=== PATIENT | female | born 1965 | race Caucasian/White ===

== ENCOUNTER 2019-04-27 06:00 | Outpatient (RCR) | payer OTHER, SELFPAY | END 2019-05-27 00:01 | LOC: SPT 06:00 | PROVIDERS: Family Provider Family Medicine; Visit Provider Specialist | DX: M25.511 Pain in right shoulder (principal); M25.611 Stiffness of right shoulder, not elsewhere classified | CPT/HCPCS: 97110 ×2 ==

== ENCOUNTER 2019-05-28 06:00 | Outpatient (RCR) | payer OTHER, SELFPAY | END 2019-06-27 23:59 | disposition home or self-care (01) | LOC: SPT 06:00 | PROVIDERS: Family Provider Family Medicine; PCP Family Medicine; Visit Provider Specialist | DX: M25.611 Stiffness of right shoulder, not elsewhere classified (principal); M25.511 Pain in right shoulder ==

== ENCOUNTER 2019-11-12 11:16 | Outpatient (CLI) | payer OTHER, SELFPAY | END 2019-11-12 11:17 | disposition home or self-care (01) | LOC: SPT 11:17 | PROVIDERS: Family Provider Family Medicine; PCP Family Medicine; Visit Provider Podiatrist Foot & Ankle Surgery | DX: Q66.72 Congenital pes cavus, left foot (principal) | CPT/HCPCS: 97760; L4397 ==

== ENCOUNTER 2020-01-26 08:11 | Emergency (ER) | payer OTHER, SELFPAY ==
[2020-01-26 08:14] VITALS: BP 156/90; PULSE 88; RESP 18; TEMP 36.3; O2SAT 98; BMI 31.8
[2020-01-26] MEDS: fluorescein 1 mg Strip EYE-LEFT (08:31)
[2020-01-26] MEDS: tetracaine 0.5% Op Soln 4 mL Btl 1 DROP EYE-LEFT (08:32)
[2020-01-26] MEDS: eye irrigation 30 mL Btl EYE-LEFT (08:34)
[2020-01-26 09:02] VITALS: BP 133/82; PULSE 65; RESP 18; O2SAT 98
--- NOTE | 2020-01-26 09:03 | W.ED.EYEPROB ---
HPI - Eye Problem General: Chief complaint: Eye Problems Stated complaint: L EYE INJURY/POKED WITH A STICK Time Seen by Provider: 01/26/20 08:12 History of Present Illness: HPI Narrative: Patient scratched her left eyeball with a stick last night by accident is able to see okay light hurts her eye chief complaint: eye injury Onset (ago): hour(s) Onset description: sudden Duration: constant Location: left eye Eye Symptoms: burning, redness and pain Place: home Mechanism: direct trauma Severity: mild Associated symptoms: Reports no associated symptoms; Denies fever(s), headache(s), nausea or vomiting Review of Systems Const: Denies: fever(s), chills or body aches Eyes: Reports: eye discomfort; Denies: change in vision or blurry vision ENMT: Denies: throat pain or nasal congestion Card: Denies: chest pain or dyspnea on exertion Resp: Denies: dyspnea, productive cough or non-productive cough GI: Denies: abdominal pain, nausea or vomiting Musc: Denies: extremity pain Skin/Breast: Denies: rash Neuro: Denies: headache(s) Psych: Denies: anxiety or depression Sebas/Lymph: Denies: easy bruising Physical Exam Eye: COMMON NORMALS: Equal, round and reactive pupils present VISUAL ACUITY: Yes acuity normal CORNEA: Yes fluorescein used (Patient has abrasion to the center of her cornea and then slightly above it at 12 o'clock position off the cornea did take up the floor seen) PUPIL: Yes Equal, round and reactive pupils present Psych: COMMON NORMALS: mental status grossly normal Course Vital Signs: Vital signs: Vital Signs Temperature 97.3 F L 01/26/20 08:14 Pulse Rate 65 01/26/20 09:02 Respiratory Rate 18 01/26/20 09:02 Blood Pressure 133/82 01/26/20 09:02 Pulse Oximetry 98 01/26/20 09:02 MDM - Eye Problem MDM Narrative: Medical decision making narrative: Patient's I took fluorescein stain abrasion to cornea and then also slightly about 12 o'clock position irrigated the eye at best is possible is very difficult to keep this person's eye open while doing the irrigation so some of forcing still was left patient was told her then told to follow-up Dr. Alba tomorrow no foreign body seen Discharge Plan Discharge Patient Disposition: Home Clinical Impression: Corneal abrasion Qualifiers: Encounter type: initial encounter Laterality: left Qualified Code(s): S05.02XA - Injury of conjunctiva and corneal abrasion without foreign body, left eye, initial encounter Condition: Stable Prescriptions: New gentamicin 0.3 % drops 1 drop ophthalmic (eye) Q3H 3 Days Qty: 5 RF: 0 No Action (DME) Night Splint See Rx Instructions .Route .MEDSUPPLY Qty: 1 RF: 0 Discharge Orders: Discharge Order (Routine); Ordered 01/26/20 Ordered By: Ethan Landers Referrals: Marleny Juarez MD [Primary Care Provider] - Discharge Diet: Usual diet Discharge Activity: Increase activity as tolerated Patient Instructions: Corneal Abrasion (ED) Activity Restrictions/Additional Instructions: Follow-up with medical provider as directed. Take medications as prescribed. Return to the ER or your medical provider if condition worsens. Please read and understand discharge instructions. If any questions ask please. Follow-up with Dr. Alba in the morning if no significant improvement can take Tylenol or ibuprofen for pain. Coding Level of Care Code ED Research Laboratory Manager for Melani Coe Exam Expanded Problem Focused
--- NOTE | 2020-01-26 12:32 | PC.NURSE ---
Read and agree with assessment
== END 2020-01-26 09:13 | disposition home or self-care (01) ==
PROVIDERS: Emergency Provider Nurse Practitioner Family; Family Provider Family Medicine; PCP Family Medicine
DX: S05.02XA Injury of conjunctiva and corneal abrasion without foreign body, left eye, initial encounter (principal); X58.XXXA Exposure to other specified factors, initial encounter
CPT/HCPCS: 12345; 99281; 99283

== ENCOUNTER 2020-04-02 05:40 | Day surgery (SDC) | payer OTHER, SELFPAY ==
[2020-04-01 08:03] VITALS: BMI 30.6
[2020-04-02 05:59] VITALS: BP 124/86; PULSE 101; RESP 18; TEMP 36.8; O2SAT 99
[2020-04-02] MEDS: sodium chloride 0.9% 1,000 ML 30 ML IV (06:13)
--- NOTE | 2020-04-02 06:40 | P.ANESASSM_ITS ---
Pre-Anesthetic Assessment Pre-Anesthetic Assessment: Height/Weight: Height 1.6 m Weight 78.471 kg Temp Pulse Resp BP Pulse Ox 98.2 F 101 H 18 124/86 99 04/02/20 05:59 04/02/20 05:59 04/02/20 05:59 04/02/20 05:59 04/02/20 05:59 Proposed Procedure: Operation Date: 04/02/20 07:00 Proposed Procedures p Colonoscopy(Not Applicable) - Zach Crenshaw MD Familial anesthetic complications: None Was Beta Rajinder taken within 24 hours: N/A Last intake: Intake Last Liquid Date 04/01/20 Last Liquid Time 23:59 Last Solid Date 03/31/20 Last Solid Time 20:00 Social: Social History: No alcohol and No tobacco Exam: Pre-Anes Outpt Exam: alert, oriented x 3, clear to auscultation bilaterally and regular rate & rhythm Airway: Cervical ROM: WNL MP: 1 Dentition: False CV/HEM: Comments: as a 5 year old had a heart defect ( a whole) repaired. She says it was a valve. [facility] has no futher details. Echo as an adult, showed no abnormalities, EF 55%, grade I diastolic dsyfunction Metabolic: Metabolic: Thyroid Anesthetic Plan: ASA status: 2 Anesthesia: MAC Risk of > 500 ml blood loss (7ml/kg in children): No Meds/Allergies Current Medications: Current Medications Generic Name Dose Route Start Last Admin Trade Name Freq PRN Reason Stop Dose Admin Sodium Chloride 1,000 mls @ 30 ml s/hr 04/02/20 06:00 04/02/20 06:13 Sodium Chloride 0.9% IV 04/03/20 05:59 30 mls/hr .Q24H UMU Administration Data Anesthesia Cardiac Studies: No Data to Display
[2020-04-02 07:29] VITALS: BP 110/75; PULSE 84; RESP 18; TEMP 36.1; O2SAT 97
--- NOTE | 2020-04-02 07:33 | PM.HP ---
Providers/Chief Complaint Primary Care Provider: Marleny Juarez MD Chief Complaint: SCREENING History of Present Illness Fay Palacios is a 54 year old female who presents for a screening colonoscopy due to family history of colon cancer. Her most recent colonoscopy was in 2013.. She was seen in my office on 10 February. At that time he was discussed the risks and benefits of a screening colonoscopy. We discussed the risks of bleeding, perforation and sedation. She had no further questions and wishes to proceed. Review of Systems General: Reports: 10 or more systems reviewed and unremarkable except in HPI and below Const: Denies: fever(s) Card: Denies: chest pain or irregular heart rhythm Resp: Denies: dyspnea Medications/Allergies Home Medications Medication Instructions Recorded Confirmed Last Taken Type Night Splint #1 ea 11/12/19 11/12/19 Unknown Rx levothyroxine [Euthyrox] 100 mcg PO DAILY 04/01/20 04/02/20 04/01/20 History metronidazole 1 applic TOPICAL PRN PRN 04/02/20 04/02/20 Unknown History minocycline 1 mg PO PRN 04/02/20 04/02/20 Unknown History oxymetazoline [Rhofade] 1 applic TOPICAL PRN PRN 04/02/20 04/02/20 Unknown History Allergies Allergy/AdvReac Type Severity Reaction Status Date / Time terbinafine [From Lamisil] Allergy Intermediate ALGY-Hives Verified 01/26/20 08:16 Vitals/I&O/Wt Last Vital Signs Temp 97 F L 04/02/20 07:29 Pulse 84 04/02/20 07:29 Resp 18 04/02/20 07:29 BP 110/75 04/02/20 07:29 Pulse Ox 97 04/02/20 07:29 Weight last 48 hrs Weight 173 lb Physical Exam Const: COMMON NORMALS: no acute distress and patient oriented x3 GENERAL APPEARANCE: cooperative, comfortable and well developed HENMT: COMMON NORMALS: normocephalic and moist oral mucous membranes HEAD & SCALP: normocephalic Chest: COMMONS NORMALS: normal inspection of the chest Resp: COMMON NORMALS: normal respiratory effort and clear to auscultation bilaterally AUSCULTATION: clear to auscultation bilaterally Cardio: COMMON NORMALS: regular rate, regular rhythm, No gallops present (Cardio), No murmurs present (Cardio) and No rub (Cardio) RATE: regular rate RHYTHM: regular rhythm Extremity: COMMON NORMALS: normal to inspection Neuro: COMMON NORMALS: patient oriented x3 and no focal motor deficits Skin: COMMON NORMALS: no rashes or lesions noted GENERAL SKIN EXAM: no rashes or lesions noted A&P Assessment and plan (1) Family history of colon cancer in mother: Proceed with screening colonoscopy. We once again reiterated the risks of the procedure this morning. Status: Acute Attestations Medical Necessity Statement*: Outpatient procedure. 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
[2020-04-02 07:44] VITALS: BP 95/74; PULSE 85; RESP 18; O2SAT 100
--- NOTE | 2020-04-02 08:20 | ANE.PACU2 ---
Inpatient post-anesthesia follow up: Airway intact: Yes Vital signs: Temperature 97 F Pulse Rate 85 Respiratory Rate 18 Blood Pressure 95/74 Pulse Oximetry 100 Oxygen Delivery Me thod Room Air Oxygen Flow Rate Fraction of Inspir ed Oxygen Hydration adequate: Yes Nausea and vomiting: No Pain level: 1 Mental status: Baseline
== END 2020-04-02 08:24 | disposition home or self-care (01) ==
PROVIDERS: PCP Family Medicine; Visit Provider Family Medicine
PROC: 0DJD8ZZ Inspection of Lower Intestinal Tract, Via Natural or Artificial Opening Endoscopic (ICD-10-PCS; CPT 45378; principal; 2020-04-02 07:00)
DX: Z12.11 Encounter for screening for malignant neoplasm of colon (principal); Z80.0 Family history of malignant neoplasm of digestive organs
CPT/HCPCS: 12345; 45378; J2704; J7030

== ENCOUNTER 2020-05-04 13:59 | Outpatient (CLI) | payer OTHER, SELFPAY ==
--- NOTE | 2020-05-04 14:05 | MM_ITS ---
WS: [id number] SCREENING DIGITAL MAMMOGRAM WITH CAD HISTORY: SCREENING COMPARISON: 04/14/2019 and 07/19/2017 Bilateral CC and MLO views submitted. Computer aided detection analyzed. Breast composition: There are scattered areas of fibroglandular density. No suspicious masses, microc alcifications or architectural distortion. MM/[id number] IMPRESSION: BI-RADS: 1-Negative FOLLOW UP: 1 Year Follow-up
== END 2020-05-04 14:00 | disposition home or self-care (01) ==
LOC: RADSHAW 14:04
PROVIDERS: PCP Family Medicine; Visit Provider Family Medicine
DX: Z12.31 Encounter for screening mammogram for malignant neoplasm of breast (principal)
CPT/HCPCS: 77067

== ENCOUNTER → 2020-12-07 10:19 | Outpatient (BNVA) | payer OTHER, SELFPAY | PROVIDERS: PCP Family Medicine; Visit Provider Internal Medicine Cardiovascular Disease | DX: E78.5 Hyperlipidemia, unspecified (principal) | CPT/HCPCS: 80061 ==

== ENCOUNTER 2021-01-12 06:50 | Outpatient (CLI) | payer OTHER, SELFPAY ==
--- NOTE | 2021-01-12 07:31 | ECG_ITS ---
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 Baseline heart rate was 72 beats per minute. Baseline blood pressure was 132/86 millimeters of mercury. Target heart rate was 167 beats per minute. Maximum heart rate achieved was 154, which was 92 % of the target heart rate. Maximum blood pressure was 161/93 millimeters of mercury. Total exercise time was 6 minutes. Maximum METs achieved was 7.0, maximum VO2 was 24.5. The reason for ending the test was maximum effort achieved. The patient complained of shortness of breath during the stress test, which then resolved at the end of the test. ELECTROCARDIOGRAM: BASELINE: Showed sinus rhythm, normal axis, no significant ST-T changes at the baseline noted. EXERCISE: At the peak exercise level, no significant ST-T changes suggestive of ischemia noted. RECOVERY: During the recovery period, heart rate dropped appropriately. No significant ST-T changes in the recovery suggestive of ischemia noted. CONCLUSION: 1. Exercise capacity fair. 2. Heart rate response was appropriate. 3. Blood pressure response was appropriate. 4. Symptoms not suggestive of ischemia. 5. Electrocardiogram portion of the stress test was not suggestive of ischemia. 6. Nuclear scan will be documented separately. Electronically Signed On 01-19-2021 21:28:23 CDT by DESTINY GARCIA [id number]
[2021-01-12 07:32] VITALS: BMI 31.3
--- NOTE | 2021-01-12 07:32 | NMCV_ITS ---
NM sandip perf SPECT r/s* [id number] Fay Palacios Age: 55 Gender: F : 1965 Exam Date: 01/12/2021 08:18 Ordering Phys: Kelli Garcia MD ([email or web address]) Technologist: FRANCISCO Roe Exam Location: [facility] Indications: SHORTNESS OF BREATH STRESS TEST [facility] IMAGE PROTOCOL Rest/Stress 1 Exercise Day Radiopharmaceutical Dose (mCi) Administration Site Administered by Rest: Tc-99m 10.8 IV FRANCISCO [place] Sestamibi Stress:Tc-99m 32.6 IV FRANCISCO [place] Sestamibi Rest: 12-Jan-2021 60 Discovery 630 Stress: 12-Jan-2021 15 Discovery 630 Radiopharmaceutical was injected at 89 % maximum heart rate. images obtained in supine and prone position. SPECT RESULTS Technical Quality: Excellent Raw Data Analysis: Normal Image Corrections: No attenuation or motion correction applied Summed Stress Score: 0 Summed Rest Score: 0 Summed Difference Score: 0 PERFUSION FINDINGS SPECT images demonstrate homogeneous tracer distribution throughout the myocardium. FUNCTIONAL RESULTS (calculated via Gated SPECT) Stress Image LV EF (%): 66 Stress EDV (mL):88 TID: 0.92 Stress ESV (mL):30 Rest Image LV EF (%): 66 FUNCTIONAL FINDINGS: There is normal left ventricular systolic function. IMPRESSIONS Myocardial perfusion imaging is normal. EKG segment will be documented separately. Kelli Garcia MD (Electronically Signed) Final Date: 12 January 2021 21:15 S
[2021-01-12 09:05] VITALS: BP 135/84; PULSE 96
== END 2021-01-12 06:51 | disposition home or self-care (01) ==
LOC: CDL 06:54
PROVIDERS: PCP Family Medicine; Visit Provider Internal Medicine Cardiovascular Disease
DX: R07.9 Chest pain, unspecified (principal); R06.02 Shortness of breath
CPT/HCPCS: 78452; 93017; A9500

== ENCOUNTER → 2021-03-15 09:07 | Outpatient (BNVA) | payer OTHER, SELFPAY | PROVIDERS: PCP Family Medicine; Referring Provider Family Medicine; Visit Provider Internal Medicine | DX: E03.9 Hypothyroidism, unspecified (principal); L68.0 Hirsutism; Z87.891 Personal history of nicotine dependence | CPT/HCPCS: 99204 ==

== ENCOUNTER 2021-03-15 10:12 | Outpatient (CLI) | payer OTHER, SELFPAY ==
[2021-03-15 11:32] LABS: Free T4 Free Thyroxine 1.56 ng/dL (0.82-1.77); Thyroid Stimulating Hormone 0.05 uIU/mL (0.27-4.20)
[2021-03-16 14:52] LABS: Dehydroepiandrosterone Sulfate 211 mcg/dL (8-188); Thyroid Peroxidase Antobodies 6 IU/mL (<9)
== END 2021-03-15 10:13 | disposition home or self-care (01) ==
PROVIDERS: PCP Family Medicine; Visit Provider Internal Medicine
DX: E03.9 Hypothyroidism, unspecified (principal); L68.0 Hirsutism
CPT/HCPCS: 36415; 82627; 84403; 84439; 84443; 86376

== ENCOUNTER 2021-04-06 06:39 | Outpatient (CLI) | payer OTHER, SELFPAY ==
--- NOTE | 2021-04-06 07:15 | USCV_ITS ---
Fay Palacios Age: 55 Gender: F : 1965 Exam Date: 04/06/2021 07:15 Ordering Phys: Kelli Garcia MD ([email or web address]) Technologist: Dimitry Potts Exam Location: [facility] – [place] Indication: SOB BP: 130 / 74 HR: 76 Rhythm: Sinus Technical Quality: Adequate MEASUREMENTS (Male / Female) Normal Values 2D ECHO LV Diastolic Diameter PLAX 4.3 cm 4.2 - 5.9 / 3.9 - 5.3 cm LV Systolic Diameter PLAX 3.2 cm IVS Diastolic Thickness 0.9 cm 0.6 - 1.0 / 0.6 - 0.9 cm IVS Systolic Thickness 1.1 cm LVPW Diastolic Thickness 1.0 cm 0.6 - 1.0 / 0.6 - 0.9 cm LVPW Systolic Thickness 1.1 cm LVOT Diameter 2.0 cm LV Ejection Fraction 2D Teich 50.6 % LV Ejection Fraction MOD 2C 54.3 % LV Ejection Fraction 2C AL 56.9 % LA Diameter 3.5 cm LA Width 4.2 cm LA Height 4.4 cm RA Width 3.5 cm RA Height 4.9 cm DOPPLER AV Peak Velocity 116.0 cm/s LVOT Peak Velocity 69.0 cm/s AV Area Cont Eq vti 2.0 cm squared AV Area Cont Eq pk 1.9 cm squared MV Area PHT 5.0 cm squared Mitral E to A Ratio 0.8 MV E' Velocity 45.0 cm/s Mitral E to MV E' Ratio 7.9 Mitral E to LV E' Lateral Ratio 6.6 Mitral E to LV E' Septal Ratio 9.9 TR Peak Velocity 146.0 cm/s TR Peak Gradient 8.5 mmHg FINDINGS Left Ventricle Normal left ventricular cavity size. Normal left ventricular systolic function. Left ventricular ejection fraction is estimated at 55 %. Grade I/IV diastolic dysfunction (abnormal relaxation filling pattern), normal to mildly elevated filling pressures. Right Ventricle The right ventricle is normal in size and function. Right Atrium The right atrium is normal in size. Left Atrium The left atrium is normal in size. Mitral Valve Moderately thickened mitral valve. Moderate mitral annular calcification. No mitral valve stenosis. Mild-moderate mitral valve regurgitation. Aortic Valve Moderate aortic valve calcification. No aortic valve stenosis. No aortic valve regurgitation. Tricuspid Valve [id number] tricuspid valve regurgitation. Pulmonic Valve Structurally normal pulmonic valve without significant stenosis. There is no pulmonic regurgitation. Pericardium Normal pericardium without effusion. Aorta Normal ascending aorta dimension. CONCLUSIONS 1-Normal left ventricular cavity size. Normal left ventricular systolic function. Left ventricular ejection fraction is estimated at 55 %. Grade I/IV diastolic dysfunction (abnormal relaxation filling pattern), normal to mildly elevated filling pressures. 2-Moderately thickened mitral valve. Moderate mitral annular calcification. No mitral valve stenosis. Mild-moderate mitral valve regurgitation. 3-Moderate aortic valve calcification. No aortic valve stenosis. No aortic valve regurgitation. 8-Vwni-rq-moderate tricuspid valve regurgitation. 5-There is no pericardial effusion. 6-Right atrial pressure is around 5 mm of mercury. 7-No significant change since the prior echocardiogram study of 01/05/2014. Kelli Garcia MD (Electronically Signed) Final Date: 12 April 2021 18:39 S
== END 2021-04-06 06:40 | disposition home or self-care (01) ==
LOC: RAD 06:41
PROVIDERS: PCP Family Medicine; Visit Provider Internal Medicine Cardiovascular Disease
DX: R06.02 Shortness of breath (principal); R07.89 Other chest pain; I08.3 Combined rheumatic disorders of mitral, aortic and tricuspid valves
CPT/HCPCS: 93306

== ENCOUNTER 2021-05-10 06:44 | Outpatient (CLI) | payer OTHER, SELFPAY ==
--- NOTE | 2021-05-10 07:15 | US_ITS ---
WS: [id number] ULTRASOUND THYROID TECHNIQUE: Ultrasound of the thyroid. CLINICAL INFORMATION: eval for thyroid nodule COMPARISON: None. FINDINGS: Thyroid: Right and left thyroid lobes are normal in size and echotexture. Right thyroid lobe: 4.1 cm x 1.5 cm x 1.2 cm Left thyroid lobe: 2.2 cm x 1.1 cm x 0.9 cm. Hypoechoic tiny cystic lesion measuring 3.1 x 2.5 mm Isthmus: 0.2 mm. Cervical lymphadenopathy: None. US/US thyroid [id number] IMPRESSION: 1. Hypoechoic tiny cystic lesion measuring 3.1 x 2.5 mm left thyroid. 2. No other visualized thyroid nodules.
[2021-05-10 08:36] LABS: Free T4 Free Thyroxine 1.31 ng/dL (0.82-1.77); Thyroid Stimulating Hormone 0.51 uIU/mL (0.27-4.20)
[2021-05-11 16:22] LABS: Dehydroepiandrosterone Sulfate 203 mcg/dL (8-188)
== END 2021-05-10 06:45 | disposition home or self-care (01) ==
LOC: RAD 06:47
PROVIDERS: PCP Family Medicine; Visit Provider Internal Medicine
DX: E03.9 Hypothyroidism, unspecified (principal); L68.0 Hirsutism; E07.89 Other specified disorders of thyroid
CPT/HCPCS: 36415; 76536; 82627; 84439; 84443

== ENCOUNTER → 2021-05-17 11:13 | Outpatient (BNVA) | payer OTHER, SELFPAY | PROVIDERS: PCP Family Medicine; Visit Provider Internal Medicine | DX: E78.5 Hyperlipidemia, unspecified (principal); E03.9 Hypothyroidism, unspecified; Z13.1 Encounter for screening for diabetes mellitus; L68.0 Hirsutism | CPT/HCPCS: 82627; 83036 ==

== ENCOUNTER 2021-05-18 14:52 | Outpatient (CLI) | payer OTHER, SELFPAY ==
--- NOTE | 2021-05-18 15:01 | MM_ITS ---
WS: [id number] BILATERAL SCREENING DIGITAL MAMMOGRAM WITH CAD HISTORY: SCREENING COMPARISON: 05/04/2020 and 04/14/2019 Bilateral CC and MLO views submitted. Computer aided detection analyzed. Breast composition: There are scattered areas of fibroglandular density. No suspicious masses, microc alcifications or architectural distortion. MM/[id number] IMPRESSION: BI-RADS: 1-Negative FOLLOW UP: 1 Year Follow-up
== END 2021-05-18 14:53 | disposition home or self-care (01) ==
LOC: RADSHAW 14:57
PROVIDERS: PCP Family Medicine; Visit Provider Family Medicine
DX: Z12.31 Encounter for screening mammogram for malignant neoplasm of breast (principal)
CPT/HCPCS: 77067

== ENCOUNTER → 2021-09-01 13:42 | Outpatient (BNVA) | payer OTHER, SELFPAY | PROVIDERS: PCP Family Medicine; Visit Provider Family Medicine | DX: E78.5 Hyperlipidemia, unspecified (principal); E03.9 Hypothyroidism, unspecified; R73.03 Prediabetes | CPT/HCPCS: 80061; 83036; 84439; 84443 ==

== ENCOUNTER → 2021-11-10 09:22 | Outpatient (BNVA) | payer OTHER, SELFPAY | PROVIDERS: PCP Family Medicine; Visit Provider Internal Medicine | DX: E03.9 Hypothyroidism, unspecified (principal) | CPT/HCPCS: 84439; 84443 ==

== ENCOUNTER 2022-07-11 08:47 | Outpatient (CLI) | payer OTHER, SELFPAY ==
[2022-07-11 10:08] LABS: Creatinine Urine, Random 161 mg/dL (28-217); Microalbum Creatinine Ratio Ur 6 mg/dL (0-20); Microalbumin Random Urine 1 ug/dL (0-20)
[2022-07-11 10:50] LABS: Alanine Aminotransferase 14 U/L (0-33); Albumin Level 4.1 g/dL (3.5-5.2); Alkaline Phosphatase 78 U/L (35-105); Aspartate Amino Transferase 16 U/L (0-32); Blood Urea Nitrogen 8 mg/dL (6-20); Calcium 9.2 mg/dL (8.5-10.5); Carbon Dioxide 19 mmol/L (22-29); Chloride 105 mmol/L (98-107); Chol HDL Ratio 2.83 mg/dL (0.0-4.40); Cholesterol 136 mg/dL (0-200); Free T4 Free Thyroxine 0.92 ng/dL (0.82-1.77); Globulin 3.4 g/dL (1.3-4.6); Glomerular Filtration Rate 104.2 mL/min (90-130); Glucose 91 mg/dL (65-115); HDL Cholesterol 48 mg/dL (60-100); LDL Cholesterol Calculated 53 mg/dL (50-129); Osmolality Calculated 284 mOsm/kg (285-295); Sodium 138 mmol/L (136-145); Thyroid Stimulating Hormone 5.28 uIU/mL (0.27-4.20); Total Bilirubin 0.3 mg/dL (0.15-1.2); Total Protein 7.5 g/dL (6.6-8.7); Triglycerides 175 mg/dL (0-150)
[2022-07-11 10:53] LABS: Anion Gap 18.2 (5-19); Potassium 4.2 mmol/L (3.5-5.1)
[2022-07-11 11:24] LABS: Estmated Average Glucose 111; Hemoglobin A1C 5.5 % (4.0-6.0)
[2022-07-12 11:34] LABS: Dehydroepiandrosterone Sulfate 136 mcg/dL (5-167)
== END 2022-07-11 08:48 | disposition home or self-care (01) ==
LOC: LAB 08:50
PROVIDERS: PCP Family Medicine; Visit Provider Internal Medicine
DX: E03.9 Hypothyroidism, unspecified (principal); E78.2 Mixed hyperlipidemia; R73.03 Prediabetes; R63.5 Abnormal weight gain
CPT/HCPCS: 36415; 80053; 80061; 82044; 82627; 83036; 84439; 84443

== ENCOUNTER 2022-08-02 06:07 | Outpatient (CLI) | payer OTHER, SELFPAY ==
--- NOTE | 2022-08-02 06:30 | US_ITS ---
WS: [id number] THYROID ULTRASOUND HISTORY: hypothyroidism COMPARISON: 05/10/2021 Right lobe: 1.5 cm x 1.4 cm x 4.1 cm (w x ap x l). Volume: 4.4 cm3. Small size gland with coarse diffuse heterogeneity. No mass or increased vascularity. No echogenic fo ci. Left lobe: 1.1 cm x 1.0 cm x 2.2 cm (w x ap x l). Volume: 1.3 cm3. Small coarse heterogeneous gland. No mass or increased vascularity. No colloid cyst identified. Isthmus: 0.1 cm. US/US thyroid [id number] IMPRESSION: 1. Small heterogeneous thyroid gland. Similar to the prior study. 2. No thyroid mass or echogenic foci. Colloid cyst is not identified in the LE FT thyroid gland.
== END 2022-08-02 06:08 | disposition home or self-care (01) ==
LOC: RAD 06:09
PROVIDERS: PCP Family Medicine; Visit Provider Internal Medicine
DX: E03.9 Hypothyroidism, unspecified (principal)
CPT/HCPCS: 76536

== ENCOUNTER 2022-09-21 07:01 | Outpatient (CLI) | payer OTHER, SELFPAY ==
[2022-09-21 07:54] LABS: Estmated Average Glucose 117; Hemoglobin A1C 5.7 % (4.0-6.0)
[2022-09-21 07:56] LABS: Creatinine Urine, Random 115 mg/dL (28-217); Microalbum Creatinine Ratio Ur 9 mg/dL (0-20); Microalbumin Random Urine 1 ug/dL (0-20)
[2022-09-21 08:02] LABS: Alanine Aminotransferase 14 U/L (0-33); Albumin Level 4.1 g/dL (3.5-5.2); Alkaline Phosphatase 70 U/L (35-105); Anion Gap 15.2 (5-19); Aspartate Amino Transferase 15 U/L (0-32); Blood Urea Nitrogen 13 mg/dL (6-20); Calcium 9.2 mg/dL (8.5-10.5); Carbon Dioxide 21 mmol/L (22-29); Chloride 104 mmol/L (98-107); Chol HDL Ratio 2.47 mg/dL (0.0-4.40); Cholesterol 106 mg/dL (0-200); Globulin 3.2 g/dL (1.3-4.6); Glomerular Filtration Rate 103.8 mL/min (90-130); Glucose 94 mg/dL (65-115); HDL Cholesterol 43 mg/dL (60-100); LDL Cholesterol Calculated 33 mg/dL (50-129); LDL HDL Ratio 0.77 RATIO (0.00-3.22); Osmolality Calculated 282 mOsm/kg (285-295); Potassium 4.2 mmol/L (3.5-5.1); Sodium 136 mmol/L (136-145); Thyroid Stimulating Hormone 1.38 uIU/mL (0.27-4.20); Total Bilirubin 0.3 mg/dL (0.15-1.2); Total Protein 7.3 g/dL (6.6-8.7); Triglycerides 149 mg/dL (0-150)
== END 2022-09-21 07:02 | disposition home or self-care (01) ==
PROVIDERS: PCP Family Medicine; Visit Provider Internal Medicine
DX: E03.9 Hypothyroidism, unspecified (principal); E78.2 Mixed hyperlipidemia; R73.03 Prediabetes; L68.0 Hirsutism; R63.5 Abnormal weight gain
CPT/HCPCS: 80053; 80061; 82044; 83036; 84439; 84443

== ENCOUNTER → 2023-06-01 08:42 | Outpatient (BNVA) | payer OTHER, SELFPAY | PROVIDERS: PCP Family Medicine; Visit Provider Internal Medicine | DX: E03.9 Hypothyroidism, unspecified (principal); R73.03 Prediabetes | CPT/HCPCS: 80053; 80061; 82044; 83036; 84439; 84443 ==

== ENCOUNTER 2023-08-13 07:22 | Outpatient (CLI) | payer OTHER, SELFPAY ==
[2023-08-13 08:30] LABS: Free T4 Free Thyroxine 1.39 ng/dL (0.82-1.77); Thyroid Stimulating Hormone 1.29 uIU/mL (0.27-4.20)
== END 2023-08-13 07:23 | disposition home or self-care (01) ==
LOC: LAB 07:25
PROVIDERS: PCP Family Medicine; Visit Provider Internal Medicine
DX: E03.9 Hypothyroidism, unspecified (principal); R73.03 Prediabetes
CPT/HCPCS: 36415; 84439; 84443

== ENCOUNTER 2023-12-12 15:42 | Outpatient (CLI) | payer OTHER, SELFPAY ==
--- NOTE | 2023-12-12 15:48 | MM_ITS ---
WS: [id number] Bilateral screening 3D tomosynthesis digital mammogram, 12/13/2023 Clinical Data: SCREEN Comparison: 05/18/2021, 05/04/2020, 04/14/2019, 07/19/2017, 04/11/2016, 08/07/2013. Findings: The breast parenchymal pattern shows fibroglandular tissue.. No spiculated masses or clustered calcif ications are seen. There are no secondary signs of carcinoma. MM/[place] [id number] Impression: 1. Negative bilateral mammogram unchanged. 2. Recommend annual screening mammograms. BIRADS: 1-Negative FOLLOW UP: 1 Year Follow-up The CAD color checker roving or yarn was used.
== END 2023-12-12 15:43 | disposition home or self-care (01) ==
LOC: RAD 15:43
PROVIDERS: PCP Family Medicine; Visit Provider Family Medicine
DX: Z12.31 Encounter for screening mammogram for malignant neoplasm of breast (principal); R92.323 Mammographic fibroglandular density, bilateral breasts
CPT/HCPCS: 77063; 77067

== ENCOUNTER 2024-04-21 07:15 | Outpatient (CLI) | payer OTHER, SELFPAY ==
[2024-04-21 08:16] LABS: Alanine Aminotransferase 13 U/L (0-33); Albumin Level 4.1 g/dL (3.5-5.2); Alkaline Phosphatase 76 U/L (35-105); Anion Gap 14.4 (5-19); Aspartate Amino Transferase 14 U/L (0-32); Blood Urea Nitrogen 12 mg/dL (6-20); Calcium 9.4 mg/dL (8.5-10.5); Carbon Dioxide 25 mmol/L (22-29); Chloride 103 mmol/L (98-107); Chol HDL Ratio 2.69 mg/dL (0.0-4.40); Cholesterol 121 mg/dL (0-200); Free T4 Free Thyroxine 1.31 ng/dL (0.82-1.77); Globulin 3.3 g/dL (1.3-4.6); Glomerular Filtration Rate 74.2 mL/min (90-130); Glucose 101 mg/dL (65-115); HDL Cholesterol 45 mg/dL (60-100); LDL Cholesterol Calculated 49 mg/dL (50-129); LDL HDL Ratio 1.09 RATIO (0.00-3.22); Osmolality Calculated 286 mOsm/kg (285-295); Potassium 4.4 mmol/L (3.5-5.1); Sodium 138 mmol/L (136-145); Thyroid Stimulating Hormone 0.59 uIU/mL (0.27-4.20); Total Bilirubin 0.4 mg/dL (0.15-1.2); Total Protein 7.4 g/dL (6.6-8.7); Triglycerides 135 mg/dL (0-150)
[2024-04-21 08:27] LABS: Estmated Average Glucose 114; Hemoglobin A1C 5.6 % (4.0-6.0)
[2024-04-21 08:36] LABS: Creatinine Urine, Random 207 mg/dL (28-217); Microalbum Creatinine Ratio Ur 5 mg/dL (0-20); Microalbumin Random Urine 1 ug/dL (0-20)
== END 2024-04-21 07:16 | disposition home or self-care (01) ==
LOC: LAB 07:16
PROVIDERS: PCP Family Medicine; Visit Provider Internal Medicine
DX: E03.9 Hypothyroidism, unspecified (principal); R73.03 Prediabetes; E78.2 Mixed hyperlipidemia
CPT/HCPCS: 36415; 80053; 80061; 82044; 83036; 84439; 84443

== ENCOUNTER 2024-10-23 06:25 | Outpatient (CLI) | payer OTHER, SELFPAY ==
[2024-10-23 07:52] LABS: Creatinine Urine, Random 64 mg/dL (28-217); Microalbum Creatinine Ratio Ur 16 mg/dL (0-20); Microalbumin Random Urine 1 ug/dL (0-20)
[2024-10-23 07:56] LABS: Estmated Average Glucose 126
[2024-10-23 08:00] LABS: Alanine Aminotransferase 11 U/L (0-33); Albumin Level 4.1 g/dL (3.5-5.2); Alkaline Phosphatase 90 U/L (35-105); Blood Urea Nitrogen 11 mg/dL (6-20); Calcium 9.6 mg/dL (8.5-10.5); Carbon Dioxide 25 mmol/L (22-29); Chloride 101 mmol/L (98-107); Chol HDL Ratio 3.09 mg/dL (0.0-4.40); Cholesterol 133 mg/dL (0-200); Free T4 Free Thyroxine 1.28 ng/dL (0.82-1.77); Glomerular Filtration Rate 86.2 mL/min (90-130); Glucose 93 mg/dL (65-115); HDL Cholesterol 43 mg/dL (60-100); LDL Cholesterol Calculated 53 mg/dL (50-129); LDL HDL Ratio 1.23 RATIO (0.00-3.22); Osmolality Calculated 283 mOsm/kg (285-295); Sodium 137 mmol/L (136-145); Thyroid Stimulating Hormone 0.34 uIU/mL (0.27-4.20); Total Bilirubin 0.4 mg/dL (0.15-1.2); Total Protein 8.1 g/dL (6.6-8.7); Triglycerides 185 mg/dL (0-150)
[2024-10-23 08:02] LABS: Anion Gap 15.5 (5-19); Aspartate Amino Transferase 19 U/L (0-32); Potassium 4.5 mmol/L (3.5-5.1)
== END 2024-10-23 06:26 | disposition home or self-care (01) ==
LOC: LAB 06:28
PROVIDERS: PCP Family Medicine; Visit Provider Internal Medicine
DX: E03.9 Hypothyroidism, unspecified (principal); R73.03 Prediabetes; R63.5 Abnormal weight gain; E78.2 Mixed hyperlipidemia
CPT/HCPCS: 36415; 80053; 80061; 82044; 83036; 84439; 84443

== ENCOUNTER 2025-01-28 11:19 | Outpatient (CLI) | payer OTHER, SELFPAY ==
--- NOTE | 2025-01-28 12:09 | MM_ITS ---
WS: [id number] BILATERAL 3D TOMOSYNTHESIS DIGITAL SCREENING MAMMOGRAPHY WITH CAD CLINICAL INFORMATION: ANNUAL SCREENING MAMMOGRAM HISTORY: Screening mammogram. No current complaints. COMPARISON: 2023 TECHNIQUE: Bilateral CC and MLO views. FINDINGS: Scattered fibroglandular densities bilaterally. No suspicious focal mass, asymmetry, calcifications, or architectural distortion. No evidence of malignancy. MM/MM scr tomosynthesis [id number] IMPRESSION: DENSITY: There are scattered areas of fibroglandular density. BI-RADS: 1 - Negative. FOLLOW UP: 1 Year Follow-up Recommend return to annual screening mammography.
== END 2025-01-28 11:20 | disposition home or self-care (01) ==
LOC: RAD 11:20
PROVIDERS: PCP Family Medicine; Visit Provider Family Medicine
DX: Z12.31 Encounter for screening mammogram for malignant neoplasm of breast (principal); R92.323 Mammographic fibroglandular density, bilateral breasts
CPT/HCPCS: 77063; 77067

== ENCOUNTER 2025-05-19 07:03 | Outpatient (CLI) | payer OTHER, SELFPAY ==
[2025-05-19 08:09] LABS: Alanine Aminotransferase 11 U/L (0-33); Albumin Level 4.3 g/dL (3.5-5.2); Alkaline Phosphatase 83 U/L (35-105); Anion Gap 13.2 (5-19); Aspartate Amino Transferase 14 U/L (0-32); Blood Urea Nitrogen 8 mg/dL (6-20); Calcium 9.6 mg/dL (8.5-10.5); Carbon Dioxide 23 mmol/L (22-29); Chloride 105 mmol/L (98-107); Cholesterol 128 mg/dL (0-200); Free T4 Free Thyroxine 1.36 ng/dL (0.82-1.77); Globulin 2.9 g/dL (1.3-4.6); Glucose 103 mg/dL (65-115); HDL Cholesterol 44 mg/dL (60-100); Osmolality Calculated 283 mOsm/kg (285-295); Potassium 4.2 mmol/L (3.5-5.1); Sodium 137 mmol/L (136-145); Thyroid Stimulating Hormone 0.51 uIU/mL (0.27-4.20); Total Protein 7.2 g/dL (6.6-8.7); Triglycerides 176 mg/dL (0-150)
[2025-05-19 08:14] LABS: Creatinine Urine, Random 110 mg/dL (28-217); Microalbum Creatinine Ratio Ur 9 mg/dL (0-20)
[2025-05-19 08:23] LABS: Estmated Average Glucose 117; Hemoglobin A1C 5.7 % (4.0-6.0)
== END 2025-05-19 07:04 | disposition home or self-care (01) ==
PROVIDERS: PCP Family Medicine; Visit Provider Internal Medicine
DX: R73.03 Prediabetes (principal); E03.9 Hypothyroidism, unspecified
CPT/HCPCS: 36415; 80053; 80061; 82044; 83036; 84439; 84443